=== PATIENT | female | born 1965 | race Caucasian/White ===

== ENCOUNTER → 2016-11-05 | Outpatient (CLI) | payer OTHER ==
[~2016-11-05] MED LIST: ANAPROX DS550 M1 PO; CELECOXIB200 MG PO; COUMADIN5 MG PO; ENDOCET 5-3251 EACH PO; IRON325 MG PO; LISINOPRIL40 MG PO; MOTRIN800 MG PO; NEURONTIN100 MG PO; NEURONTIN300 MG PO; OXYCONTIN10 MG PO; PERCOCET 5/31 TABLET PO; PRILOSEC20 MG PO; SENNA-TIME S T1 EACH PO; ULTRAM50 MG PO; ZOFRAN ODT8 MG PO
== END | disposition home or self-care (01) ==
DX: M17.12 Unilateral primary osteoarthritis, left knee (principal); R26.2 Difficulty in walking, not elsewhere classified; M62.81 Muscle weakness (generalized); M25.662 Stiffness of left knee, not elsewhere classified
CPT/HCPCS: 97110 GP; 97150 GO; 97161 GP; 97165 GO

== ENCOUNTER 2017-01-20 06:16 | Day surgery (SDC) | payer OTHER ==
[~2017-01-20] VITALS: Ht 157.5 cm; Wt 84.0 kg
[~2017-01-20 06:16] MED LIST changes: +CALCIUM PO; +CYMBALTA60 MG PO; +DIABETA5 MG PO; +FISH OIL 1,2001 EAC4 PO; +GLUCOPHAGE1000 MG PO; +GRALISE600 MG PO; +HYDROCHLOROTHIA25 MG PO; +LORCET 5-325 M1 EACH PO; +REQUIP1 MG PO; +ZANAFLEX4 M1 PO
[2017-01-20] MEDS ORDERED: VITAMIN D2000 UNI1 PO (07:00)
[2017-01-20 07:26] LABS: POINT-OF-CARE METER ID UU14174212; POINT-OF-CARE USER ID AHSRSCSLC11
== END 2017-01-20 08:34 | disposition home or self-care (01) ==
LOC: PAIN 06:16 → SDC 07:30 → PAIN 07:30
PROVIDERS: Anesthesiology Pain Medicine
DX: M51.36 Other intervertebral disc degeneration, lumbar region (principal); M54.5 Low back pain; M47.816 Spondylosis without myelopathy or radiculopathy, lumbar region; M79.1 Myalgia; I10 Essential (primary) hypertension; K21.9 Gastro-esophageal reflux disease without esophagitis; E11.9 Type 2 diabetes mellitus without complications; M25.562 Pain in left knee; A69.20 Lyme disease, unspecified; G50.0 Trigeminal neuralgia; Z87.891 Personal history of nicotine dependence; Z79.84 Long term (current) use of oral hypoglycemic drugs; Z79.899 Other long term (current) drug therapy; Z88.0 Allergy status to penicillin; Z79.891 Long term (current) use of opiate analgesic
CPT/HCPCS: 82948; J1030; J2250; J3010; S0020

== ENCOUNTER 2017-01-27 06:42 | Day surgery (SDC) | payer OTHER ==
[~2017-01-27] VITALS: Ht 157.5 cm; Wt 90.7 kg
[~2017-01-27 06:42] MED LIST changes: +VITAMIN D2000 UNI1 PO
[2017-01-27 07:07] LABS: POINT-OF-CARE METER ID UU14174212
== END 2017-01-27 08:45 | disposition home or self-care (01) ==
LOC: PAIN 06:42 → SDC 07:30 → PAIN 07:30
PROVIDERS: Anesthesiology Pain Medicine
DX: M47.816 Spondylosis without myelopathy or radiculopathy, lumbar region (principal); F41.9 Anxiety disorder, unspecified; M51.36 Other intervertebral disc degeneration, lumbar region; I10 Essential (primary) hypertension; A69.20 Lyme disease, unspecified; G50.0 Trigeminal neuralgia; F17.200 Nicotine dependence, unspecified, uncomplicated; Z88.0 Allergy status to penicillin
CPT/HCPCS: 82948; J1030; J2250; J3010; S0020

== ENCOUNTER → 2017-07-21 | Outpatient (CLI) | payer OTHER ==
[~2017-07-21] VITALS: Ht 160 cm; Wt 95.7 kg
[~2017-07-21] MED LIST changes: +AMBIEN10 MG PO; +BENTYL10 MG PO; +CLARITIN10 MG PO; +FLONASE16 G1 BOTH NARES; -GRALISE600 MG PO; +KLONOPIN0.5 M1 PO; +LIORESAL10 MG PO; +LIPITOR40 MG PO; +NEURONTIN800 MG PO; +TESSALON PERLE100 MG PO
[2017-07-21 08:20] LABS: POINT-OF-CARE METER ID UU14107333
== END | disposition home or self-care (01) ==
LOC: AMB 07:41
PROVIDERS: Internal Medicine
PROC: 0DB68ZX Excision of Stomach, Via Natural or Artificial Opening Endoscopic, Diagnostic (ICD-10-PCS; principal; 2017-07-21)
DX: K29.70 Gastritis, unspecified, without bleeding (principal); R19.7 Diarrhea, unspecified; A69.20 Lyme disease, unspecified; I10 Essential (primary) hypertension; E11.40 Type 2 diabetes mellitus with diabetic neuropathy, unspecified; Z79.84 Long term (current) use of oral hypoglycemic drugs; M47.816 Spondylosis without myelopathy or radiculopathy, lumbar region; Z87.891 Personal history of nicotine dependence; Z88.0 Allergy status to penicillin
CPT/HCPCS: 82948; 88305; 88342 TC; 93005; J2250; J3010

== ENCOUNTER 2017-08-03 21:24 | Inpatient (IN) | payer OTHER ==
[~2017-08-03] VITALS: Ht 160 cm; Wt 95.7 kg
[~2017-08-03 21:24] MED LIST changes: +FISH OIL OMEGA1 EAC2 PO; +MICRONASE5 MG PO; +VITAMIN D32000 UNI1 PO
[2017-08-04 11:53] VITALS: BP 107/60
[2017-08-04 12:36] LABS: POINT-OF-CARE METER ID UU14174212
[2017-08-04 15:44] LABS: POINT-OF-CARE METER ID UU13113675; POINT-OF-CARE USER ID 515036437
[2017-08-04 16:02] LABS: HEMATOCRIT 39.2 % (36.0-46.0); MCH 31.6 PG (29.0-34.0); MCHC 33.9 G/DL (30.0-36.0); MCV 93.1 FL (83-99); PLATELET COUNT 272 K/uL (156-360); RBC DIS.WIDTH-CV 13.2 % (11.8-14.6); RBC DIS.WIDTH-SD 45.1 % (39-53); RED BLOOD COUNT 4.21 M/uL (3.80-5.20); WHITE BLOOD COUNT 8.5 K/uL (4.1-10.2)
[2017-08-04 17:56] VITALS: BP 97/59
[2017-08-04 19:58] VITALS: BP 101/60
[2017-08-04 22:04] LABS: POINT-OF-CARE METER ID UU13113712
[2017-08-05] VITALS (7 sets, daily range): BP systolic 109–188; BP diastolic 57–89
[2017-08-05 06:05] LABS: HEMATOCRIT 35.7 % (36.0-46.0); MCV 93.5 FL (83-99)
[2017-08-05 06:32] LABS: ANION GAP 9 MEQ/L (2-14); CHLORIDE 99 MEQ/L (99-109); GFR ESTIMATE (CALCULATED) > 59 mL/min/; GLUCOSE 160 mg/dL (70-99); POTASSIUM 4.5 MEQ/L (3.7-5.4); SAMPLE HEMOLYSIS CHECK 0; SAMPLE ICTERIC CHECK 0; SAMPLE LIPEMIA CHECK 0; SODIUM 135 MEQ/L (136-147); UREA NITROGEN (BUN) 15 mg/dL (9-23)
[2017-08-05 10:59] LABS: INTER. NORMALIZED RATIO 1.1; PROTHROMBIN TIME 12.1 SEC (10.2-12.9)
[2017-08-05 11:01] LABS: PTT 27.6 SEC (25-37)
[2017-08-05 12:26] LABS: POINT-OF-CARE METER ID UU13113712
[2017-08-05 16:14] LABS: POINT-OF-CARE METER ID UU13113712
[2017-08-05 21:34] LABS: POINT-OF-CARE METER ID UU13113712
[2017-08-06 00:12] VITALS: BP 126/72
[2017-08-06 04:54] VITALS: BP 122/70
[2017-08-06 06:45] LABS: INTER. NORMALIZED RATIO 1.1; PROTHROMBIN TIME 13.1 SEC (10.2-12.9)
[2017-08-06 07:03] LABS: HEMATOCRIT 35.8 % (36.0-46.0); MCV 92.3 FL (83-99)
[2017-08-06 07:54] LABS: POINT-OF-CARE METER ID UU13113712
[2017-08-06 08:00] VITALS: BP 118/51
[2017-08-06] MEDS ORDERED: DOCUSATE SODIU100 MG PO (08:37)
[2017-08-06] MEDS ORDERED: CELECOXIB200 MG PO (08:39)
[2017-08-06] MEDS ORDERED: LOVENOX40 MG/0.4 SC (08:39)
[2017-08-06] MEDS ORDERED: ENDOCET 5-3251 EACH PO (08:39)
[2017-08-06] MEDS ORDERED: COUMADIN5 MG PO (08:39)
[2017-08-06 11:40] LABS: POINT-OF-CARE METER ID UU13113712
[2017-08-06 12:00] VITALS: BP 108/68
== END 2017-08-06 15:34 | DRG 470 ==
LOC: ENRESERV 21:24 → 2SOUTH 08-04 09:20 → 3WEST 08-04 17:39
PROVIDERS: Orthopaedic Surgery; Physician Assistant
PROC: 0SRD0J9 Replacement of Left Knee Joint with Synthetic Substitute, Cemented, Open Approach (ICD-10-PCS; principal; 2017-08-04)
DX: M17.12 Unilateral primary osteoarthritis, left knee (principal); E11.40 Type 2 diabetes mellitus with diabetic neuropathy, unspecified; G25.81 Restless legs syndrome; G89.29 Other chronic pain; E78.00 Pure hypercholesterolemia, unspecified; K21.9 Gastro-esophageal reflux disease without esophagitis; G47.00 Insomnia, unspecified; I10 Essential (primary) hypertension; J30.89 Other allergic rhinitis; J44.9 Chronic obstructive pulmonary disease, unspecified; E78.2 Mixed hyperlipidemia; E55.9 Vitamin D deficiency, unspecified; Z87.11 Personal history of peptic ulcer disease; Z86.19 Personal history of other infectious and parasitic diseases; Z79.84 Long term (current) use of oral hypoglycemic drugs; Z88.0 Allergy status to penicillin; Z83.3 Family history of diabetes mellitus
CPT/HCPCS: 73560; 80048; 82948; 85014; 85018; 85027; 85610; 85730; 93005; C1713; J1170; J1650; J1815; J2250; J2405; J2795; J7030; J7050; Q0175

== ENCOUNTER 2017-12-23 12:26 | Emergency (ER) | payer OTHER ==
[~2017-12-23] VITALS: Ht 160 cm; Wt 99.8 kg
[~2017-12-23 12:26] MED LIST changes: +DOCUSATE SODIU100 MG PO; +LOVENOX40 MG/0.4 SC
[2017-12-23 13:08] LABS: HEMATOCRIT 40.5 % (36.0-46.0); HEMOGLOBIN 13.8 G/DL (11.9-15.5); MCH 31.1 PG (29.0-34.0); MCHC 34.1 G/DL (30.0-36.0); MCV 91.2 FL (83-99); PLATELET COUNT 293 K/uL (156-360); RBC DIS.WIDTH-CV 12.9 % (11.8-14.6); RBC DIS.WIDTH-SD 43.2 % (39-53); RED BLOOD COUNT 4.44 M/uL (3.80-5.20)
[2017-12-23 13:10] LABS: ALBUMIN 4.2 g/dL (3.2-4.8); CHLORIDE 104 mEq/L (99-109); POTASSIUM 3.9 mEq/L (3.7-5.4); SODIUM 139 mEq/L (136-147)
[2017-12-23 13:12] LABS: GLUCOSE 119 mg/dL (70-99); TOTAL PROTEIN 6.9 g/dL (6.4-8.3)
[2017-12-23 13:14] LABS: TOTAL BILIRUBIN 0.4 mg/dL (0.0-1.0)
[2017-12-23 13:15] LABS: APPEARANCE CLOUDY ((CLEAR)); BILIRUBIN NEGATIVE; BLOOD NEGATIVE; COLOR YELLOW ((YELLOW)); GLUCOSE (STRIP) NEGATIVE; KETONES NEGATIVE; LEUKOCYTES LARGE; NITRITE NEGATIVE; PROTEIN (STRIP) 30; SPECIFIC GRAVITY 1.018 (1.000-1.030); UROBILINOGEN 0.2 MG/DL (0.2-1.0)
[2017-12-23 13:16] LABS: ALKALINE PHOSPHATASE 79 IU/L (3-129); CREATININE 0.8 mg/dL (0.6-1.3); GFR ESTIMATE (CALCULATED) > 59 mL/min/
[2017-12-23 13:17] LABS: UREA NITROGEN (BUN) 14 mg/dL (9-23)
[2017-12-23 13:18] LABS: AST (GOT) 35 IU/L (2-34)
[2017-12-23 13:19] LABS: ALT (GPT) 44 IU/L (3-49)
[2017-12-23 13:35] LABS: EPITHELIAL CELLS 2+ /HPF; MUCUS NONE SEEN /LPF; RED BLOOD CELLS NONE SEEN /HPF (0-5)
[2017-12-23 13:36] LABS: BACTERIA 1+ /HPF; UCUL ADDED? YES
[2017-12-23] MEDS ORDERED: MOBIC7.5 MG PO (15:31)
[2017-12-23] MEDS ORDERED: KEFLEX500 MG PO (15:31)
[2017-12-23 15:42] VITALS: BP 117/73
== END 2017-12-23 15:44 | disposition home or self-care (01) ==
LOC: EME 12:26
DX: N39.0 Urinary tract infection, site not specified (principal); M54.5 Low back pain; M54.16 Radiculopathy, lumbar region; G89.29 Other chronic pain; E11.9 Type 2 diabetes mellitus without complications; G43.909 Migraine, unspecified, not intractable, without status migrainosus; F32.9 Major depressive disorder, single episode, unspecified; Z72.0 Tobacco use; Z79.84 Long term (current) use of oral hypoglycemic drugs; Z88.0 Allergy status to penicillin
CPT/HCPCS: 74176; 80053; 81003; 85027; 87086; 99281; 99284

== ENCOUNTER 2018-02-19 07:17 | Day surgery (SDC) | payer OTHER ==
[~2018-02-19] VITALS: Ht 160 cm; Wt 95.2 kg
[~2018-02-19 07:17] MED LIST changes: +KEFLEX500 MG PO; +MOBIC7.5 MG PO; +ZOLOFT50 MG PO
[2018-02-19] MEDS ORDERED: PANTOPRAZOLE SO20 MG PO (07:56)
== END 2018-02-19 09:00 | disposition home or self-care (01) ==
LOC: PAIN 07:17 → SDC 08:00 → PAIN 08:00
PROVIDERS: Anesthesiology Pain Medicine
DX: M54.16 Radiculopathy, lumbar region (principal); M51.36 Other intervertebral disc degeneration, lumbar region; M47.816 Spondylosis without myelopathy or radiculopathy, lumbar region; G62.9 Polyneuropathy, unspecified; M79.1 Myalgia
CPT/HCPCS: 82948; J1100